=== PATIENT | male | born 1950 | race Caucasian/White ===

== ENCOUNTER 2018-08-07 07:49 | Day surgery (SDC) | payer OTHER ==
[~2018-08-07] VITALS: Ht 170.2 cm; Wt 73.4 kg
[2018-08-07 08:57] VITALS: Ht 170.2 cm; Wt 73.4 kg
[2018-08-07] MEDS ORDERED: diabetes med PO (09:03)
[2018-08-07] MEDS ORDERED: cholesterol med PO (09:03)
[2018-08-07 10:21] VITALS: BP 162/75; PULSE 64; RESP 15
[2018-08-07] MEDS ORDERED: MIDAZOLAM 1 MG/ML 2 ML INJ ONE ×2 (11:16)
[2018-08-07] MEDS ORDERED: FENTAnyl 50 MCG/ML VIAL ONE (11:16)
[2018-08-07 11:40] VITALS: BP 110/58; PULSE 55; RESP 8
== END 2018-08-07 15:47 | disposition home or self-care (01) ==
LOC: GIL 07:49
PROVIDERS: ATTEND Internal Medicine Gastroenterology
DX: Z12.11 Encounter for screening for malignant neoplasm of colon (principal); D12.5 Benign neoplasm of sigmoid colon; K64.8 Other hemorrhoids; E11.9 Type 2 diabetes mellitus without complications
CPT/HCPCS: 45380; 88305; J2250; J3010; Z7610